=== PATIENT | female | born 1980 | race Caucasian/White ===

== ENCOUNTER → 2017-09-30 | Outpatient (CLI) | payer BC ==
[2017-09-30 09:53] LABS: Basophils % (A) 1 %; Eosinophils # (A) 0.1 k/uL (0-0.7); Eosinophils % (A) 1 %; HCT 40.9 % (34.0-46.0); HGB 13.5 gm/dL (11.4-16.0); Lymphocytes # (A) 1.5 k/uL (1.0-4.8); Lymphocytes % (A) 22 %; MCV 90.8 fL (80.0-100.0); Mean Platelet Volume 9.4; Monocytes # (A) 0.4 k/uL (0-1.0); Monocytes % (A) 6 %; Neutrophils # (A) 4.7 k/uL (1.3-7.7); Neutrophils % (A) 69 %; Platelet Count 132 k/uL (150-450); RBC 4.51 m/uL (3.80-5.40); RDW 13.4 % (11.5-15.5); WBC 6.9 k/uL (3.8-10.6)
[2017-09-30 10:18] LABS: ALT 85 U/L (9-52); AST 59 U/L (14-36); Albumin 4.6 g/dL (3.5-5.0); Alkaline Phosphatase 56 U/L (38-126); Anion Gap 11 mmol/L; Blood Urea Nitrogen 15 mg/dL (7-17); Calcium 9.8 mg/dL (8.4-10.2); Carbon Dioxide 25 mmol/L (22-30); Chloride 106 mmol/L (98-107); Cholesterol 148 mg/dL (<200); Glucose 88 mg/dL (74-99); HDL Cholesterol 42 mg/dL (40-60); LDL Cholesterol,Calculated 85 mg/dL (0-99); Sodium 142 mmol/L (137-145); Total Bilirubin 0.7 mg/dL (0.2-1.3); Total Protein 6.9 g/dL (6.3-8.2); Triglycerides 103 mg/dL (<150)
[2017-09-30 10:29] LABS: T4, Free (Free Thyroxine) 0.86 ng/dL (0.78-2.19)
== END | disposition home or self-care (01) ==
LOC: LABWHC1 08:40
PROVIDERS: ATTEND Internal Medicine
DX: Z13.228 Encounter for screening for other metabolic disorders (principal); Z13.29 Encounter for screening for other suspected endocrine disorder; Z13.220 Encounter for screening for lipoid disorders
CPT/HCPCS: 36415; 80053; 80061; 84439; 84443; 85025

== ENCOUNTER → 2019-01-25 | Outpatient (CLI) | payer BC ==
--- NOTE | 2019-01-26 10:40 | MM ---
Reason for exam: screening (asymptomatic). Baseline mammogram. History: Patient is nulliparous. Family history of breast cancer in maternal aunt. Taking hormonal contraceptives for 6 years. Physical Findings: Nurse did not find any significant physical abnormalities on exam. MG 3D Screening Mammo W/Cad Bilateral CC and MLO view(s) were taken. The breast tissue is heterogeneously dense. This may lower the sensitivity of mammography. 12 o'clock nodules seen bilaterally 5.2cm from nipple and 6.2cm from nipple on the left. These results were verbally communicated with the patient and result sheet given to the patient on 01/25/19. ASSESSMENT: Incomplete: need additional imaging evaluation, BI-RAD 0 RECOMMENDATION: Ultrasound of both breasts. If lesion persists on supplemental views, image directed ultrasound is recommended. [facility] will attempt to contact patient to return for supplemental views and ultrasound if indicated.
--- NOTE | 2019-01-26 10:43 | USB ---
Reason for exam: additional evaluation requested from abnormal screening. History: Patient is nulliparous. Family history of breast cancer in maternal aunt. Taking hormonal contraceptives for 6 years. US Breast Workup Limited OSMAN Right limited breast ultrasound including focal area of concern, retroareolar and axilla demonstrates a 3 x 2 x 4mm oval lesion too small to characterize at 11 o'clock and a 5 x 3 x 5mm oval, cystic lesion at 12 o'clock. Left limited breast ultrasound including focal area of concern, retroareolar and axilla demonstrates a 6 x 2 x 6mm oval, cystic lesion at 12 o'clock and a 3 x 3 x 3mm round cystic lesion at 12 o'clock. These results were verbally communicated with the patient and result sheet given to the patient on 01/25/19. ASSESSMENT: Benign, BI-RAD 2 RECOMMENDATION: Return to routine screening mammogram schedule for both breasts.
== END | disposition home or self-care (01) ==
LOC: RADMAMWWP 15:23
PROVIDERS: ATTEND Internal Medicine
DX: Z12.31 Encounter for screening mammogram for malignant neoplasm of breast (principal); R92.8 Other abnormal and inconclusive findings on diagnostic imaging of breast
CPT/HCPCS: 77063; 77067

== ENCOUNTER → 2019-12-05 | Outpatient (CLI) | payer BC ==
[2019-12-05 14:10] LABS: Appearance,Urine Clear (Clear); Bacteria,Urine Rare /hpf; Bilirubin,Urine Negative (Negative); Blood,Urine Small (Negative); Color,Urine Colorless; Glucose,Urine (UA) Negative (Negative); Ketones,Urine Negative (Negative); Leukocyte Esterase,Urine Negative (Negative); Mucus,Urine Rare /hpf; Nitrite,Urine Negative (Negative); PH, Urine 5.5 (5.0-8.0); Protein,Urine Negative (Negative); RBC,Urine <1 /hpf (0-5); Specific Gravity,Urine 1.002 (1.001-1.035); Squamous Epithelial Cell,Urine <1 /hpf (0-4); Urobilinogen,Urine <2.0 mg/dL (<2.0); WBC,Urine 1 /hpf (0-5)
[2019-12-05 14:50] LABS: HCT 37.7 % (34.0-46.0); HGB 12.1 gm/dL (11.4-16.0); MCH 29.7 pg (25.0-35.0); MCHC 32.2 g/dL (31.0-37.0); MCV 92.1 fL (80.0-100.0); Mean Platelet Volume 11.5; Platelet Count 134 k/uL (150-450); RBC 4.09 m/uL (3.80-5.40); RDW 13.3 % (11.5-15.5); WBC 6.7 k/uL (3.8-10.6)
[2019-12-05 15:00] LABS: INR 0.9 (<1.2); Partial Thromboplastin Time 22.8 sec (22.0-30.0); Prothrombin Time 9.9 sec (9.0-12.0)
[2019-12-05 15:09] LABS: ALT 12 U/L (4-34); AST 19 U/L (14-36); African American GFR (CKD) >90 (>60 ml/min/1.73 sqM); Albumin 4.4 g/dL (3.5-5.0); Alkaline Phosphatase 52 U/L (38-126); Anion Gap 8 mmol/L; Blood Urea Nitrogen 12 mg/dL (7-17); Calcium 9.3 mg/dL (8.4-10.2); Carbon Dioxide 25 mmol/L (22-30); Chloride 104 mmol/L (98-107); Glucose 78 mg/dL (74-99); Non-African American GFR(CKD) >90 (>60 ml/min/1.73 sqM); Potassium 4.1 mmol/L (3.5-5.1); Sodium 137 mmol/L (137-145); Total Bilirubin 0.6 mg/dL (0.2-1.3); Total Protein 6.9 g/dL (6.3-8.2)
== END | disposition home or self-care (01) ==
LOC: LABPAT 13:06
PROVIDERS: ATTEND Orthopaedic Surgery
DX: Z01.818 Encounter for other preprocedural examination (principal); Z01.812 Encounter for preprocedural laboratory examination
CPT/HCPCS: 36415; 80053; 81001; 85027; 85610; 85730; 86850; 86900; 86901; 87070

== ENCOUNTER 2019-12-12 05:30 | Day surgery (SDC) | payer BC ==
[2019-12-04 12:52] VITALS: BMI 30.7
[~2019-12-12 05:30] MED LIST: ACETAMINOPHEN TAB 500 MG TAB PO ONE; GABAPENTIN 300 MG CAP PO ONE; MELOXICAM 7.5 MG TAB PO ONE; TRANEXAMIC ACID 1,000 MG in SODIUM CHLORIDE 0.9% 100 ML IVPB ONE
[2019-12-12] MEDS ORDERED: MIDAZOLAM 2 MG/2 ML VIAL IV PRN (05:48)
[2019-12-12] MEDS ORDERED: HYDROmorphone 0.5 MG/0.5 ML SYRINGE IVP PRN ×3 (05:48→06:57)
[2019-12-12] MEDS ORDERED: ONDANSETRON 4 MG/2 ML VIAL IVP ONE (05:48)
[2019-12-12] MEDS ORDERED: LIDOCAINE 1% (10MG/ML) FOR IV START INTRADERMA PRN (05:48)
[2019-12-12] MEDS ORDERED: DEXAMETHASONE SOD PHOSPHATE 10 MG/ML 1 ML VIAL IV ONE (05:48)
[2019-12-12 06:07] VITALS: RESP 16
[2019-12-12] MEDS: LACTATED RINGERS 1,000 ML IV SCH (06:18)
[2019-12-12] MEDS ORDERED: ACETAMINOPHEN TAB 500 MG TAB ONE (06:22)
[2019-12-12] MEDS ORDERED: ONDANSETRON 4 MG/2 ML VIAL ONE (06:22)
[2019-12-12] MEDS ORDERED: ePHEDrine SULFATE/0.9% NACL/PF 50 MG/5 ML SYRINGE IV ONE (06:53)
[2019-12-12] MEDS ORDERED: fentaNYL (PF) 50 MCG/ML 2 ML AMP ONE (06:53)
[2019-12-12] MEDS ORDERED: PROPOFOL 10 MG/ML 20 ML VIAL IV ONE (06:53)
[2019-12-12] MEDS ORDERED: MIDAZOLAM 2 MG/2 ML VIAL ONE (06:53)
[2019-12-12] MEDS ORDERED: SODIUM CHLORIDE 0.9% IRRIG 1,000 ML BTL IRRIGATION ONE (06:53)
[2019-12-12] MEDS ORDERED: TRANEXAMIC ACID 1,000 MG/10 ML VIAL ONE (06:53)
[2019-12-12] MEDS ORDERED: HEPARIN SODIUM,PORCINE 10,000 UNIT/ML 1 ML VIAL ONE (06:53)
[2019-12-12] MEDS ORDERED: SODIUM CHLORIDE 0.9% 100 ML BAG ONE (06:53)
[2019-12-12] MEDS ORDERED: NALOXONE 0.4 MG/ML 1 ML VIAL IV PRN (06:57)
[2019-12-12] MEDS ORDERED: MAGNESIUM HYDROXIDE 2,400 MG/10 ML CUP PO PRN (06:57)
[2019-12-12] MEDS ORDERED: diazePAM 5 MG TAB PO PRN (06:57)
[2019-12-12] MEDS ORDERED: hydrOXYzine pamoate 25 MG CAP PO PRN (06:57)
[2019-12-12] MEDS ORDERED: ONDANSETRON 4 MG/2 ML VIAL IVP PRN (06:57)
[2019-12-12] MEDS ORDERED: HYDROmorphone 1 MG/ML 1 ML SYRINGE IVP PRN (06:57)
[2019-12-12] MEDS ORDERED: HYDROcodone/APAP 5-325MG 1 EACH TAB PO PRN ×2 (06:57)
[2019-12-12] MEDS ORDERED: ceFAZolin 3,000 MG in SODIUM CHLORIDE 0.9% IRRIGATIO 3,000 ML IRRIGATION ONE (06:58)
[2019-12-12] MEDS: ROPIVACAINE 246.25 MG, EPINEPHrine 0.5 MG, KETOROLAC 30 MG, cloNIDine HCL/PF 80 MCG, WA... MISCELLANE ONE ×10 (07:30→08:20)
[2019-12-12] MEDS ORDERED: LACTATED RINGERS 1,000 ML IV ONE (08:25)
--- NOTE | 2019-12-12 08:40 | P.OP ---
Date of Procedure: 12/12/19 Preoperative Diagnosis: Severe osteoarthritis right hip Postoperative Diagnosis: Severe osteoarthritis right hip Procedure(s) Performed: Right total hip arthroplasty with a direct anterior approach Implants: Peterson and nephew Polarstem size 0 standard Petreson & Nephew R3, 3 hole acetabular shell, 52 mm Peterson [employer] Nephew reflection 6.5 mm cancellus screw, 20 mm 2 Peterson [employer] Nephew R3, XLPE 20 acetabular liner Peterson & Nephew Oxinium femoral head 36 m, -3 All components were press-fit. The articulation is Oxinium on polyethylene. Anesthesia: spinal Surgeon: Micheal Galeano Academic Computing Director #1: Steph Cooper Estimated Blood Loss (ml): 300 (125 mL returned with Cell Saver) Pathology: other (Femoral head) Condition: stable Disposition: PACU Indications for Procedure: After failure of conservative treatment we discussed the surgical and nonsurgical treatment options at length. Patient wishes to proceed with a total hip arthroplasty with a direct anterior approach. Complications specific to this procedure were discussed at length, including but not limited to infection, leg length discrepancy, dislocation, and nerve injury. Covid-19 was also discussed at length with the patient, and they are aware of the current policies and procedures. The patient was given the option of delaying surgery, but they elect to proceed knowing these risks. Patient is aware of all these complications and informed consent was obtained Operative Findings: The operative findings are consistent with severe osteoarthritis the right hip Description of Procedure: Patient was seen and evaluated in the preoperative area, consent was reviewed, and the surgical site was marked with a skin marker. Patient was then brought to the operating room and given prophylactic antibiotics intravenously. 1 g of Tranexamic acid was also given. A spinal anesthetic was administered by the anesthesia department. The patient was then placed on the [place] table with the bony prominences well-padded. The hip area was then prepped and draped in usual sterile fashion. A universal timeout was then performed, which confirmed the patient's name, surgical site, ALLERGIES, and procedure being performed. Next the incision site was located at 1 cm distal and 1 cm lateral to the anterior superior iliac spine. The skin and subcutaneous tissues were sharply incised. Incision was carefully dissected down to the fascia overlying the tensor fascia anjel muscle. This fascia was then incised in line with the incision. Next, using blunt finger dissection, the tensor fascia anjel muscle was dissected off its investing fascia. The muscle was then carefully retracted laterally with a cobra retractor over the lateral neck of the femur. Next, the circumflex vessels were identified and cauterized using the AquaMantis device. The anterior hip capsule was then exposed. The capsule was then opened and an inverted T fashion. Cobra retractors were then placed intracapsularly. The proximal femur was then visualized. The femoral neck was then osteotomized appropriate level above the lesser trochanter. Small amount of traction was placed with the [place] table. A small wedge of bone was then removed from the remaining femoral head. Next, using a corkscrew femoral head was easily removed from the acetabulum. On gross visual inspection, the femoral head had complete loss of articular cartilage in multiple periarticular osteophytes. Attention was then turned to the acetabulum. the acetabulum was exposed and any remaining labrum was excised. Sequential reaming of the acetabulum was performed using fluoroscopic guidance. When the appropriate size was reached, a trial was then placed. The position and fit of the trial was checked with fluoroscopy. The trial was then removed. Then, using fluoroscopic guidance, the final implant was impacted at 20 of anteversion and 40 of abduction, and fully seated in the acetabulum. 2 screws were then placed in the acetabulum. Again fluoroscopy was used to check position of the screws. Next, the liner was then impacted, with a 20 elevated liner located in the anterior superior quadrant. Component locking was confirmed. Attention was then directed to the femur. With the aid of the [place] table, the femur was externally rotated to approximately 130, extended, and abducted under the opposite leg. A side hook was then placed under the proximal femur, and the side hook elevator was used to elevate the proximal femur. Retractors were then placed. A capsular release was performed, as well as a release of the conjoined tendon, which afforded excellent visualization of the proximal femur. Next, a box osteotome was used to lateralize the proximal femur. A merchandise flow team leader was then used to locate the femoral canal. Sequential broaching was then performed with appropriate size which afforded excellent fixation in the proximal femur. A trial was then placed with appropriate head and neck, and the hip was gently reduced with the aid of the [place] table. Fluoroscopy was then used to check position of the components, as well as to ensure equal leg lengths. The hip was then gently dislocated and the trials were then removed. Final implants were then impacted and the hip was again reduced. Final fluoroscopic x-rays confirmed that the components were in anatomic position, as well as equal leg lengths. The hip was also taken through range of motion, and found to be stable. The hip was then copiously irrigated with antibiotic solution with pulsatile lavage. The hip was then irrigated with Irrisept solution. The soft tissues were then injected with a ropivacaine solution, which consisted of 246.25 mg of ropivacaine, 0.5 mg of epinephrine, 30 mg of Toradol, 80 g of clonidine, and 48.45 mL of sterile water, for a total of 100 mL of fluid injected. A second dose of 1 g of Tranexamic acid was also given. the fascia was then closed with 2-0 strata fix suture. The subcutaneous tissue was closed with 3-0 Vicryl. The subcuticular tissue was closed with 3-0 strata fix suture. The skin was then closed with Dermabond glue and a sterile silver dressing. The patient was then transferred to the recovery room in stable condition. The cosmetic sales assistant CAMMIE Dos Santos was required due to the complexity of surgery, and the need for skilled registered nurse surgical services for positioning, draping, exposure, retraction, and closure of the wound.
--- NOTE | 2019-12-12 09:01 | XR ---
EXAMINATION TYPE: XR Hip Limited RT DATE OF EXAM: 12/12/2019 COMPARISON: NONE HISTORY: Postop TECHNIQUE: One view submitted. FINDINGS: There is postsurgical change in near anatomic alignment. There is soft tissue edema and emphysema. IMPRESSION: 1. Postoperative change. Appears in near-anatomic alignment.
--- NOTE | 2019-12-12 09:02 | FL ---
EXAMINATION TYPE: FL guidance operating room DATE OF EXAM: 12/12/2019 HISTORY: Fluoroscopy time 1 minute and 1 seconds of fluoroscopy provided. IMPRESSION: 1. Fluoroscopy time.
[2019-12-12] MEDS: SODIUM CHLORIDE 0.9% 1,000 ML IV SCH ×2 (10:09→20:37)
--- NOTE | 2019-12-12 20:08 | CONS ---
CONSULTATION DATE OF SERVICE: 12/12/2019 REASON FOR CONSULTATION: Advice regarding DJD and other multiple medical issues, requested by Orthopedic Surgery. HISTORY OF PRESENT ILLNESS: This 39-year-old woman with a past medical history of DJD, history of left Achilles tendon history of laparoscopy, being followed by Dr. Umanzor in the outpatient setting, underwent right total knee joint arthroplasty with a direct anterior approach by Dr. Galeano. There is no history of any fever, rigor or chills. No history of headache, loss of consciousness, seizures, chest pain or palpitations at this time. PAST MEDICAL HISTORY: History of DJD, history of endometriosis, left Achilles tendon repair. MEDICATIONS: Loestrin. ALLERGIES: NONE. FAMILY HISTORY: No history of heart disease or strokes in the family. SOCIAL HISTORY: Occasional alcohol intake. No history of smoking. REVIEW OF SYSTEMS: ENT: No diminished hearing. No diminished vision. CARDIOVASCULAR SYSTEM: No angina, palpitations. RESPIRATORY SYSTEM: No cough noted. GI: No nausea, vomiting. : No dysuria or retention. NERVOUS SYSTEM: No numbness, weakness. ALLERGY/IMMUNOLOGY: No asthma, hayfever. MUSCULOSKELETAL: As mentioned earlier. HEMATOLOGY/ONCOLOGY: No history of anemia. ENDOCRINE: No history of diabetes, hypothyroidism. CONSTITUTIONAL: As mentioned earlier. DERMATOLOGY: Negative. RHEUMATOLOGY: Negative. PSYCHIATRY: As mentioned earlier. PHYSICAL EXAMINATION: Patient is alert, oriented x3. Pulse is 60, blood pressure 103/65, respiration normal, temperature normal. HEENT: Conjunctivae normal. NECK: No jugular venous distention. CARDIOVASCULAR SYSTEM: S1, S2 muffled. RESPIRATORY SYSTEM: Breath sounds diminished at the bases. No rhonchi. No crackles. ABDOMEN: Soft, non-tender. LEGS: Status post surgery. NERVOUS SYSTEM: No focal deficit. LABS: Platelets 134. Chemistries otherwise normal. ASSESSMENT: 1. Status post right total knee joint arthroplasty with severe degenerative joint disease. 2. History of thrombocytopenia. 3. History of degenerative joint disease. 4. History of left Achilles tendon repair. 5. FULL CODE. RECOMMENDATIONS AND DISCUSSION: In this 39-year-old woman who presented with multiple medical issues, I recommend to continue current medications, DVT prophylaxis. Incentive spirometry. Recommend repeat CBC in the morning. The patient may be asked to follow up with Dr. Umanzor in the outpatient setting. Thank you, Dr. Galeano, for letting us participate in the care of this patient. [id number] / IJN: [id number] / DIMA
[2019-12-12] MEDS: ASPIRIN 325 MG TAB PO SCH (20:36)
[2019-12-12] MEDS ORDERED: SENNOSIDES-DOCUSATE SODIUM 1 EACH TAB PO SCH (21:00)
[2019-12-13] MEDS: LACTATED RINGERS 1,000 ML IV SCH (05:14)
[2019-12-13 07:32] LABS: Basophils % (A) 0 %; Eosinophils % (A) 0 %; HCT 29.6 % (34.0-46.0); Lymphocytes # (A) 1.5 k/uL (1.0-4.8); Lymphocytes % (A) 26 %; MCHC 32.6 g/dL (31.0-37.0); MCV 92.1 fL (80.0-100.0); Monocytes # (A) 0.4 k/uL (0-1.0); Monocytes % (A) 8 %; Neutrophils # (A) 3.8 k/uL (1.3-7.7); Neutrophils % (A) 65 %; Platelet Count 104 k/uL (150-450); RBC 3.21 m/uL (3.80-5.40); RDW 13.1 % (11.5-15.5); WBC 5.9 k/uL (3.8-10.6)
[2019-12-13 07:44] LABS: HGB 9.6 gm/dL (11.4-16.0)
[2019-12-13 08:11] VITALS: BP 104/64; PULSE 67; TEMP 98.7
[2019-12-13] MEDS: ASPIRIN 325 MG TAB PO SCH (08:30)
--- NOTE | 2019-12-13 08:41 | P.DS ---
Providers Expected date of discharge: 12/13/19 Attending physician: Micheal Galeano Consults: 12/12/19 06:57 Consult Physician Routine Consulting Provider: Carla Gil Consult Reason/Comments: medical management Do you want consulting provider notified?: Yes Primary care physician: Holly Umanzor - Discharge Diagnosis(es) (1) S/P total hip arthroplasty Current Visit: Yes Status: Acute (2) Osteoarthritis of right hip Current Visit: Yes Status: Acute Hospital Course: This is a 39-year-old female with known history of degenerative arthritis of the right hip. The patient presents for evaluation. After discussion and consideration patient elects to proceed with total hip arthroplasty. The patient is seen preoperatively by Dr. Galeano and medically cleared for surgery by their primary care physician. Patient is admitted to [facility] on 12/12/2019 for total hip arthroplasty. The procedures performed without complication or sequelae. The patient is doing well postoperatively. Labs and vital signs are stable on day of discharge. On day of discharge patient's hip incision is healing well. There is minimal erythema. There is no drainage noted at this time. There is minimal soft tissue swelling to the hip and thigh. Patient has full foot and ankle motion without difficulty or pain. Calf is soft and nontender to palpation. Neurovascular status to the right lower extremity is intact. Patient is dis charged home in good condition. Opioid start talking form is reviewed and signed at patient bedside. Please see med rec for accurate list of home medications. Plan - Discharge Summary Discharge Rx Participant: Yes New Discharge Prescriptions: New Aspirin 325 mg PO BID #60 tab HYDROcodone/APAP 5-325MG [[place] 5-325] 1 - 2 tab PO Q6HR PRN #48 tab PRN Reason: Pain Sennosides [Senokot] 2 tab PO DAILY PRN #60 tablet PRN Reason: Constipation No Action Norethindrone AC-Eth Estradiol [Loestrin 21 1-20 Tablet] 1 tab PO 1200 Discharge Medication List Norethindrone AC-Eth Estradiol [Loestrin 21 1-20 Tablet] 1 tab PO 1200 12/04/19 [History] Aspirin 325 mg PO BID #60 tab 12/13/19 [Rx] HYDROcodone/APAP 5-325MG [[place] 5-325] 1 - 2 tab PO Q6HR PRN #48 tab 12/13/19 [Rx] Sennosides [Senokot] 2 tab PO DAILY PRN #60 tablet 12/13/19 [Rx] Follow up Appointment(s)/Referral(s): [facility], [NON-STAFF] - Patient Instructions/Handouts: Joint Replacement Surgery (DC) Activity/Diet/Wound Care/Special Instructions: Weightbearing as tolerated with walker. Leave dressing intact. Dressing may be removed by home care nurse or by patient in 10 days. May shower with dressing on. Recommend use of compression stockings daily until follow up to help prevent swelling and blood clots. May remove at night before sleeping. Please follow[facility]up with [facility] in 2 weeks and call with any questions or concerns, . Discharge Disposition: HOME WITH HOME HEALTH SERVICES
[2019-12-13] MEDS ORDERED: MELOXICAM 7.5 MG TAB PO SCH (09:00)
[2019-12-13] MEDS: SODIUM CHLORIDE 0.9% 1,000 ML IV SCH (09:18)
== END 2019-12-13 11:05 | disposition home health service (06) ==
LOC: OR 05:30 → EDSTATUS 07:00 → 4SSUR 09:34 → OR 12-13 11:05
PROVIDERS: ATTEND Orthopaedic Surgery
DX: M16.11 Unilateral primary osteoarthritis, right hip (principal); D69.6 Thrombocytopenia, unspecified; Z79.3 Long term (current) use of hormonal contraceptives; Z79.899 Other long term (current) drug therapy; Z98.890 Other specified postprocedural states; Z87.891 Personal history of nicotine dependence; Z83.3 Family history of diabetes mellitus; Z82.49 Family history of ischemic heart disease and other diseases of the circulatory system
CPT/HCPCS: 97110; 97530; 97161; 97165; 86891; 81025; 85025; 88300; 73501 ×2; 27130; P9022; C1776; J2250; J0171; J1644; J1100; J0690 ×3; J2405; J3010; J1885; J2795; J2704; J0735; 86850; 86900; 86901

== ENCOUNTER 2019-12-17 09:45 | Emergency (ER) | payer BC ==
[2019-12-17 09:54] VITALS: RESP 18
[2019-12-17] MEDS ORDERED: methylPREDNISolone SOD SUCCI 125 MG/2 ML VIAL IV STA (10:13)
[2019-12-17] MEDS ORDERED: SODIUM CHLORIDE 0.9% 500 ML 500 ML IV STA (10:13)
[2019-12-17] MEDS ORDERED: diphenhydrAMINE 50 MG/ML 1 ML VIAL IVP STA (10:13)
[2019-12-17] MEDS ORDERED: FAMOTIDINE 20 MG/2 ML VIAL IV STA (10:13)
--- NOTE | 2019-12-17 10:44 | ED ---
Allergic Reaction HPI - General Chief complaint: Allergic Reaction Stated complaint: poss allergic rxn Time Seen by Provider: 12/17/19 10:05 Source: patient Mode of arrival: ambulatory Limitations: no limitations - History of Present Illness Initial Comments: patient is a 39-year-old female presenting to the emergency Department with complaints of a possible ALLERGIC reaction. Patient had a recent right total hip performed 5 days ago. She's been recovering well since surgery. Patient was prescribed aspirin, [place], stool softener to take. Patient states she has been taking this medication as prescribed and then 2 days ago noticed a red rash starting on her arms and neck. Patient states she last took her pain medicine and stool softener more than 3 days ago. She states she took last took aspirin yesterday in the morning. She did call her orthopedic doctor who recommended she discontinue aspirin and to start taking Benadryl every 4 hours. Patient states she has been taking 50 mg of Benadryl every 4 hours starting from yesterday and she feels like the rash is not improving. She denies any chest pain, shortness of breath, throat discomfort, nausea or vomiting. She denies any fever or chills. Last dose of Benadryl was exam this morning. She has no further complaints at this time. Upon arrival to the ER, her vital signs are stable. - Related Data Home Medications Medication Instructions Recorded Confirmed Norethindrone AC-Eth Estradiol 1 tab PO 1200 12/04/19 12/12/19 [Loestrin 21 1-20 Tablet] Previous Rx's Medication Instructions Recorded Aspirin 325 mg PO BID #60 tab 12/13/19 HYDROcodone/APAP 5-325MG [[place] 1 - 2 tab PO Q6HR PRN #48 tab 12/13/19 5-325] Sennosides [Senokot] 2 tab PO DAILY PRN #60 tablet 12/13/19 Rivaroxaban [Xarelto] 10 mg PO DAILY #40 tab 12/16/19 predniSONE [Deltasone] 40 mg PO DAILY 4 Days #8 tab 12/17/19 Allergies Allergy/AdvReac Type Severity Reaction Status Date / Time No Known Allergies Allergy Verified 12/17/19 09:53 Review of Systems ROS Statement: Those systems with pertinent positive or pertinent negative responses have been documented in the HPI. ROS Other: All systems not noted in ROS Statement are negative. Past Medical History Past Medical History: Osteoarthritis (OA) Additional Past Medical History / Comment(s): total right hip replacement History of Any Multi-Drug Resistant Organisms: None Reported Past Surgical History: Orthopedic Surgery Additional Past Surgical History / Comment(s): left achilles tendon repair, laparoscopy for endometriosis Past Anesthesia/Blood Transfusion Reactions: No Reported Reaction Past Psychological History: No Psychological Hx Reported Smoking Status: Former smoker Past Alcohol Use History: Occasional Past Drug Use History: None Reported - Past Family History Mother Family Medical History: No Reported History General Exam - General Exam Comments Initial Comments: GENERAL: Patient is well-developed and well-nourished. Patient is nontoxic and in no acute distress. HEAD: Atraumatic, normocephalic. EYES: Pupils equal round and reactive to light, extraocular movements intact, sclera anicteric, conjunctiva are normal. Eyelids were unremarkable. ENT: TMs normal, nares patent, oropharynx clear without exudates. Moist mucous membranes. NECK: Normal range of motion, supple without lymphadenopathy or JVD. LUNGS: Unlabored respirations. Breath sounds clear to auscultation bilaterally and equal. No wheezes rales or rhonchi. HEART: Regular rate and rhythm without murmurs, rubs or gallops. ABDOMEN: Soft, nontender, normoactive bowel sounds. No guarding, no rebound. No masses appreciated. : Deferred MUSCULOSKELETAL: Normal extremities with adequate strength and normal range of motion, no pitting or edema. No clubbing or cyanosis. NEUROLOGICAL: Patient is alert and oriented x 3. Motor and sensory are also intact. Cranial nerves II through XII grossly intact. Symmetrical smile. Normal speech, normal gait. PSYCH: Normal mood, normal affect. SKIN: Warm, Dry, normal turgor. patient has a generalized hive rash over the majority of her body including her face, trunk, extremities, consistent with a possible ALLERGIC reaction. Limitations: no limitations Course Vital Signs 12/17/19 09:47 Temperature 98.6 F Pulse Rate 105 H Respiratory 18 Rate Blood Pressure 109/78 O2 Sat by Pulse 99 Oximetry Medical Decision Making - Medical Decision Making patient is a 39-year-old female here for possible ALLERGIC reaction to aspirin. He was prescribed aspirin, [place], stool softener after a recent right total hip replacement 5 days ago. The rash developed 2 days ago, she's been taking 50 mg of Benadryl since yesterday morning. She has never had difficulty breathing, chest pain or shortness of breath. Her vital signs are stable today. She does have hives on the majority of her body including head, neck, trunk, extremities. The rest of exam is unremarkable. Patient was given Benadryl, Pepcid, a dose of steroids. patient responded well to the medications, her hives are decreasing, no longer itchy or erythematous. I will give patient a prescription for prednisone 40 mg to use daily starting tomorrow for 4 days if needed. I did recommend continue with Benadryl if the hives increase or itching comes back. She will follow-up with her PCP this week. Patient is stable for discharge. Return parameters were discussed with the patient she verbalized understanding. Discussed with Dr. Jaramillo. Disposition Clinical Impression: Allergic reaction to drug, Hives Disposition: HOME SELF-CARE Condition: Stable Instructions (If sedation given, give patient instructions): Urticaria (ED) Additional Instructions: Please return to the Emergency Department if symptoms worsen or any other concerns. May continue with 50 mg of Benadryl every 4-6 hours for breakthrough itching or hives. May also take steroids as prescribed for 3-4 days for continued symptoms. Follow up with orthopedic doctor or PCP. Prescriptions: predniSONE [Deltasone] 40 mg PO DAILY 4 Days #8 tab Is patient prescribed a controlled substance at d/c from ED?: No Referrals: Holly Umanzor MD [Primary Care Provider] - 1-2 days
[2019-12-17 11:48] VITALS: BP 111/55; PULSE 83; TEMP 98.7
== END 2019-12-17 11:48 | disposition home or self-care (01) ==
LOC: EC 09:45
DX: L50.0 Allergic urticaria (principal); T39.015A Adverse effect of aspirin, initial encounter; Z96.641 Presence of right artificial hip joint; Z87.891 Personal history of nicotine dependence
CPT/HCPCS: 96361; 96374; 96375; 99282

== ENCOUNTER 2019-12-18 23:57 | Observation (INO) | payer BC ==
[2019-12-19 01:08] LABS: Basophils % (A) 0 %; Eosinophils # (A) 0.1 k/uL (0-0.7); Eosinophils % (A) 1 %; HCT 36.7 % (34.0-46.0); HGB 11.9 gm/dL (11.4-16.0); Lymphocytes # (A) 1.8 k/uL (1.0-4.8); Lymphocytes % (A) 16 %; MCH 29.1 pg (25.0-35.0); MCHC 32.5 g/dL (31.0-37.0); MCV 89.5 fL (80.0-100.0); Mean Platelet Volume 9.3; Monocytes # (A) 0.5 k/uL (0-1.0); Monocytes % (A) 4 %; Neutrophils # (A) 8.5 k/uL (1.3-7.7); Neutrophils % (A) 77 %; RDW 13.2 % (11.5-15.5)
[2019-12-19 01:18] LABS: ALT 57 U/L (4-34); AST 47 U/L (14-36); African American GFR (CKD) >90 (>60 ml/min/1.73 sqM); Albumin 3.8 g/dL (3.5-5.0); Alkaline Phosphatase 54 U/L (38-126); Anion Gap 8 mmol/L; Blood Urea Nitrogen 13 mg/dL (7-17); Calcium 9.2 mg/dL (8.4-10.2); Carbon Dioxide 24 mmol/L (22-30); Chloride 103 mmol/L (98-107); Glucose 101 mg/dL (74-99); Non-African American GFR(CKD) >90 (>60 ml/min/1.73 sqM); Potassium 3.8 mmol/L (3.5-5.1); Sodium 135 mmol/L (137-145); Total Bilirubin 0.8 mg/dL (0.2-1.3); Total Protein 6.4 g/dL (6.3-8.2)
[2019-12-19] MEDS ORDERED: methylPREDNISolone SOD SUCCI 125 MG/2 ML VIAL IV STA (01:21)
[2019-12-19 01:34] LABS: INR 0.9 (<1.2); Prothrombin Time 9.9 sec (9.0-12.0)
[2019-12-19 01:35] LABS: Platelet Count 286 k/uL (150-450)
[2019-12-19 01:39] LABS: Partial Thromboplastin Time 21.1 sec (22.0-30.0)
[2019-12-19] MEDS ORDERED: NALOXONE 0.4 MG/ML 1 ML VIAL IV PRN ×2 (02:01→08:56)
[2019-12-19] MEDS ORDERED: ONDANSETRON 4 MG/2 ML VIAL IVP PRN ×2 (02:38→08:57)
[2019-12-19] MEDS ORDERED: diphenhydrAMINE 25 MG CAP PO PRN (02:38)
--- NOTE | 2019-12-19 02:39 | ED ---
Allergic Reaction HPI - General Chief complaint: Allergic Reaction Stated complaint: ALLERGIC REACTION Time Seen by Provider: 12/19/19 00:03 Source: patient Mode of arrival: ambulatory Limitations: no limitations - History of Present Illness Initial Comments: Radha is a pleasant 39-year-old female previously healthy who underwent right hip arthroplasty on December 11. Patient did well postoperatively and was discharged home on full dose aspirin 2 times daily for DVT prophylaxis as well as by mouth Florence for pain management. Patient reports she took one Florence on Wednesday but her pain was otherwise minimal and she hasn't taken any since then. She took aspirin twice daily as prescribed until Wednesday. She presented to the emergency department on Wednesday with hives and there is concern for ALLERGIC reaction. She taken Benadryl with minimal improvement she was given IV steroids and Pepcid she had significant improvement with that and was discharged home with steroids. She has not taken any aspirin since Wednesday. Despite being compliant with her oral steroids and taking 50 mg of Benadryl every 4 hours throughout the day she has persistently worsening hives. Hives cover her entire body from her neck to her feet. She has no lesions in her mouth or vagina. She's not noticed any blistering or skin sloughing. She denies associated chest pain, shortness breath, tightness in her chest, nausea, vomiting or diarrhea. - Related Data Home Medications Medication Instructions Recorded Confirmed Norethindrone AC-Eth Estradiol 1 tab PO 1200 12/04/19 12/12/19 [Loestrin 21 1-20 Tablet] Previous Rx's Medication Instructions Recorded Aspirin 325 mg PO BID #60 tab 12/13/19 HYDROcodone/APAP 5-325MG [Florence 1 - 2 tab PO Q6HR PRN #48 tab 12/13/19 5-325] Sennosides [Senokot] 2 tab PO DAILY PRN #60 tablet 12/13/19 Rivaroxaban [Xarelto] 10 mg PO DAILY #40 tab 12/16/19 predniSONE [Deltasone] 40 mg PO DAILY 4 Days #8 tab 12/17/19 Allergies Allergy/AdvReac Type Severity Reaction Status Date / Time No Known Allergies Allergy Verified 12/19/19 00:10 Review of Systems ROS Statement: Those systems with pertinent positive or pertinent negative responses have been documented in the HPI. ROS Other: All systems not noted in ROS Statement are negative. Past Medical History Past Medical History: Osteoarthritis (OA) Additional Past Medical History / Comment(s): total right hip replacement History of Any Multi-Drug Resistant Organisms: None Reported Past Surgical History: Orthopedic Surgery Additional Past Surgical History / Comment(s): left achilles tendon repair, laparoscopy for endometriosis Past Anesthesia/Blood Transfusion Reactions: No Reported Reaction Past Psychological History: No Psychological Hx Reported Smoking Status: Former smoker Past Alcohol Use History: Occasional Past Drug Use History: None Reported - Past Family History Mother Family Medical History: No Reported History General Exam - General Exam Comments Initial Comments: Physical Exam GENERAL: Patient is well-developed and well-nourished. Patient is nontoxic and well-hydrated and is in no distress. HENT: Normocephalic, Atraumatic. EYES: PERRL, EOMI PULMONARY: Unlabored respirations. No audible rales rhonchi or wheezing was noted. CARDIOVASCULAR: There is a regular rate and rhythm without any murmurs gallops or rubs. ABDOMEN: Soft and nontender with normal bowel sounds. SKIN: Hives are noted from the neck to the feet No lesions are noted in the mouth on the vagina Nikolsky's sign negative : Deferred NEUROLOGIC: Patient is alert and oriented x3. Moving all extremities spontaneously MUSCULOSKELETAL: Normal extremities with adequate strength and full range of motion. No lower extremity swelling or edema. No calf tenderness. PSYCHIATRIC: Normal psychiatric evaluation. Limitations: no limitations Course Vital Signs 12/19/19 12/19/19 12/19/19 00:08 01:11 01:37 Temperature 99.5 F Pulse Rate 144 H 70 67 Respiratory 20 18 Rate Blood Pressure 91/55 100/44 O2 Sat by Pulse 96 98 Oximetry 12/19/19 02:47 Temperature Pulse Rate 70 Respiratory 18 Rate Blood Pressure 108/48 O2 Sat by Pulse 98 Oximetry Medical Decision Making - Medical Decision Making The patient was seen and evaluated, history is obtained from the patient, at bedside and review of medical record 39-year-old female who underwent surgery last week which was uncomplicated she received Florence and aspirin in the postoperative period, she presents to the ER Wednesday with an ALLERGIC reaction which improved with steroids and was discharged home on oral steroids and Benadryl despite compliance with this she has worsening of her reaction with hives over her entire body There is no mucous membrane involvement, no Nikolsky sign is negative, no evidence of SJS or TENS Labs were obtained and reveal mild transaminitis this is likely reactive to anti-inflammatory state or possibly reactive to the steroids the patient's been taking Given the worsening of her condition despite compliance with oral medications the patient will be admitted for IV steroids, IV Benadryl, Pepcid and Zofran as needed The patient is agreeable with this plan - Lab Data Result diagrams: 12/19/19 00:49 12/19/19 00:49 Lab Results 12/19/19 12/19/19 12/19/19 Range/Units 00:49 00:49 00:49 WBC 11.0 H (3.8-10.6) k/uL RBC 4.10 (3.80-5.40) m/uL Hgb 11.9 (11.4-16.0) gm/dL Hct 36.7 (34.0-46.0) % MCV 89.5 (80.0-100.0) fL MCH 29.1 (25.0-35.0) pg MCHC 32.5 (31.0-37.0) g/dL RDW 13.2 (11.5-15.5) % Plt Count 286 D (150-450) k/uL Neutrophils % 77 % Lymphocytes % 16 % Monocytes % 4 % Eosinophils % 1 % Basophils % 0 % Neutrophils # 8.5 H (1.3-7.7) k/uL Lymphocytes # 1.8 (1.0-4.8) k/uL Monocytes # 0.5 (0-1.0) k/uL Eosinophils # 0.1 (0-0.7) k/uL Basophils # 0.0 (0-0.2) k/uL PT 9.9 (9.0-12.0) sec INR 0.9 (<1.2) APTT 21.1 L (22.0-30.0) sec Sodium 135 L (137-145) mmol/L Potassium 3.8 (3.5-5.1) mmol/L Chloride 103 (98-107) mmol/L Carbon Dioxide 24 (22-30) mmol/L Anion Gap 8 mmol/L BUN 13 (7-17) mg/dL Creatinine 0.53 (0.52-1.04) mg/dL Est GFR (CKD-EPI)AfAm >90 (>60 ml/min/1.73 sqM) Est GFR (CKD-EPI)NonAf >90 (>60 ml/min/1.73 sqM) Glucose 101 H (74-99) mg/dL Calcium 9.2 (8.4-10.2) mg/dL Total Bilirubin 0.8 (0.2-1.3) mg/dL AST 47 H (14-36) U/L ALT 57 H (4-34) U/L Alkaline Phosphatase 54 (38-126) U/L Total Protein 6.4 (6.3-8.2) g/dL Albumin 3.8 (3.5-5.0) g/dL Disposition Clinical Impression: Allergic reaction Disposition: ADMITTED IP TO THIS [facility] Condition: Stable Is patient prescribed a controlled substance at d/c from ED?: No
[2019-12-19] MEDS: methylPREDNISolone SOD SUCCI 125 MG/2 ML VIAL IV SCH ×2 (06:20→11:59)
[2019-12-19] MEDS ORDERED: FAMOTIDINE 20 MG TAB PO SCH (09:00)
[2019-12-19] MEDS ORDERED: RIVAROXABAN 10 MG TAB PO SCH (09:00)
[2019-12-19 09:29] VITALS: BP 92/57; PULSE 64; RESP 14; TEMP 98.6
--- NOTE | 2019-12-19 13:31 | P.CNOR ---
History of Present Illness - HPI Consult date: 12/19/19 History of present illness: This is a 39 year-old female who is status post right total hip arthroplasty on 12/12/2019. Patient is admitted due to allergic reaction. Patient states that she developed hives after taking aspirin. Patient states that she was treated in the emergency room with steroids and benadryl and her rash improved. However, the hives returned today. Patient denies any pain in the right hip. Patient was sent in a prescription for Xarelto to take instead of aspirin for DVT prophylaxis. Patient states that her last dose of Xarelto was on Wednesday. Patient denies any fever/chills, numbness, weakness or tingling. Review of Systems See HPI. Past Medical History Past Medical History: Osteoarthritis (OA) Additional Past Medical History / Comment(s): total right hip replacement History of Any Multi-Drug Resistant Organisms: None Reported Past Surgical History: Orthopedic Surgery Additional Past Surgical History / Comment(s): left achilles tendon repair, laparoscopy for endometriosis Past Anesthesia/Blood Transfusion Reactions: No Reported Reaction Past Psychological History: No Psychological Hx Reported Smoking Status: Former smoker Past Alcohol Use History: Occasional Past Drug Use History: None Reported - Past Family History Mother Family Medical History: No Reported History Additional Family Medical History / Comment(s): hypotension, Father Family Medical History: Diabetes Mellitus, Hyperlipidemia Medications and Allergies Home Medications Medication Instructions Recorded Confirmed Type Norethindrone AC-Eth Estradiol 1 tab PO DAILY@1200 12/04/19 12/19/19 History [Loestrin 21 1-20 Tablet] Rivaroxaban [Xarelto] 10 mg PO DAILY #40 tab 12/16/19 12/19/19 Rx Cetirizine HCl 10 mg PO DAILY #10 tablet 12/19/19 Rx Famotidine [Pepcid] 20 mg PO BID #30 tablet 12/19/19 Rx predniSONE 10 mg PO DAILY #30 tab 12/19/19 Rx Allergies Allergy/AdvReac Type Severity Reaction Status Date / Time aspirin Allergy Rash/Hives Verified 12/19/19 07:41 Physical Examination On exam patient is resting comfortably in bed in no acute distress. There is no pain with hip motion. Sensation intact. Hives noted. Neurovascular status and circulatory status are intact. Results - Labs Labs: Abnormal Lab Results - Last 24 Hours (Table) 12/19/19 12/19/19 12/19/19 Range/Units 00:49 00:49 00:49 WBC 11.0 H (3.8-10.6) k/uL Neutrophils # 8.5 H (1.3-7.7) k/uL APTT 21.1 L (22.0-30.0) sec Sodium 135 L (137-145) mmol/L Glucose 101 H (74-99) mg/dL AST 47 H (14-36) U/L ALT 57 H (4-34) U/L H & H 12/19/19 Range/Units 00:49 Hgb 11.9 (11.4-16.0) gm/dL Hct 36.7 (34.0-46.0) % Coagulation 12/19/19 Range/Units 00:49 INR 0.9 (<1.2) Result Diagrams: 12/19/19 00:49 12/19/19 00:49 Assessment and Plan (1) Allergic reaction Status: Acute Code(s): T78.40XA - ALLERGY, UNSPECIFIED, INITIAL ENCOUNTER SNOMED Code(s): 980106335 (2) Hives Status: Acute Code(s): L50.9 - URTICARIA, UNSPECIFIED SNOMED Code(s): 730712673 (3) S/P total hip arthroplasty Status: Acute Code(s): Z96.649 - PRESENCE OF UNSPECIFIED ARTIFICIAL HIP JOINT SNOMED Code(s): 413879034787 Plan: 1. Anticoagulation to be determined by internal medcine. 2. No surgical intervention planned. Patient may follow up as an outpatient with [facility].
--- NOTE | 2019-12-19 13:38 | P.HPIM ---
History of Present Illness Radha is a pleasant 39-year-old female previously healthy who underwent right hip arthroplasty on December 11. Patient did well postoperatively and was discharged home on full dose aspirin 2 times daily for DVT prophylaxis as well as by mouth Mobile for pain management. Patient reports she took one Mobile on Wednesday but her pain was otherwise minimal and she hasn't taken any since then. She took aspirin twice daily as prescribed until Wednesday. She presented to the emergency department on Wednesday with hives and there is concern for ALLERGIC reaction. She taken Benadryl with minimal improvement she was given IV steroids and Pepcid she had significant improvement with that and was discharged home with steroids. She has not taken any aspirin since Wednesday. Despite being compliant with her oral steroids and taking 50 mg of Benadryl every 4 hours throughout the day she has persistently worsening hives. Hives cover her entire body from her neck to her feet. She has no lesions in her mouth or vagina. She's not noticed any blistering or skin sloughing. She denies associated chest pain, shortness breath, tightness in her chest, nausea, vomiting or diarrhea. Patient has diffuse maculopapular rash with significant improvement competitors today. Patient last aspirin was on Wednesday. Patient is clinically stable at this time will be discharged on weaning doses of steroids and cetirizine for will ALLERGIC rash along with application oflacto calamine lotion. Review of Systems REVIEW OF SYSTEMS: CONSTITUTIONAL: No fever, no malaise, no fatigue. HEENT: No recent visual problems or hearing problems. Denied any sore throat. CARDIOVASCULAR: No chest pain, orthopnea, PND, no palpitations, no syncope. PULMONARY: No shortness of breath, no cough, no hemoptysis. GASTROINTESTINAL: No diarrhea, no nausea, no vomiting, no abdominal pain. NEUROLOGICAL: No headaches, no weakness, no numbness. HEMATOLOGICAL: Denies any bleeding or petechiae. GENITOURINARY: Denies any burning micturition, frequency, or urgency. MUSCULOSKELETAL/RHEUMATOLOGICAL: Denies any joint pain, swelling, or any muscle pain. ENDOCRINE: Denies any polyuria or polydipsia. The rest of the 14-point review of systems is negative. Past Medical History Past Medical History: Osteoarthritis (OA) Additional Past Medical History / Comment(s): total right hip replacement History of Any Multi-Drug Resistant Organisms: None Reported Past Surgical History: Orthopedic Surgery Additional Past Surgical History / Comment(s): left achilles tendon repair, laparoscopy for endometriosis Past Anesthesia/Blood Transfusion Reactions: No Reported Reaction Past Psychological History: No Psychological Hx Reported Smoking Status: Former smoker Past Alcohol Use History: Occasional Past Drug Use History: None Reported - Past Family History Mother Family Medical History: No Reported History Additional Family Medical History / Comment(s): hypotension, Father Family Medical History: Diabetes Mellitus, Hyperlipidemia Medications and Allergies Home Medications Medication Instructions Recorded Confirmed Type Norethindrone AC-Eth Estradiol 1 tab PO DAILY@1200 12/04/19 12/19/19 History [Loestrin 21 1-20 Tablet] Rivaroxaban [Xarelto] 10 mg PO DAILY #40 tab 12/16/19 12/19/19 Rx Cetirizine HCl 10 mg PO DAILY #10 tablet 12/19/19 Rx Famotidine [Pepcid] 20 mg PO BID #30 tablet 12/19/19 Rx predniSONE 10 mg PO DAILY #30 tab 12/19/19 Rx Allergies Allergy/AdvReac Type Severity Reaction Status Date / Time aspirin Allergy Rash/Hives Verified 12/19/19 07:41 Physical Exam Vitals: Vital Signs Temp Pulse Pulse Resp BP BP Pulse Ox 12/19/19 09:00 98.6 F 64 14 92/57 95 12/19/19 02:53 97.7 F 81 17 104/67 100 12/19/19 02:47 70 18 108/48 98 12/19/19 01:37 67 18 100/44 98 12/19/19 01:11 70 12/19/19 00:08 99.5 F 144 H 20 91/55 96 Intake and Output 12/18/19 12/19/19 12/19/19 22:59 06:59 14:59 Other: # Voids 1 1 Weight 83.915 kg PHYSICAL EXAMINATION: GENERAL: The patient is alert and oriented x3, not in any acute distress. Well developed, well nourished. HEENT: Pupils are round and equally reacting to light. EOMI. No scleral icterus. No conjunctival pallor. Normocephalic, atraumatic. No pharyngeal erythema. No thyromegaly. CARDIOVASCULAR: S1 and S2 present. No murmurs, rubs, or gallops. PULMONARY: Chest is clear to auscultation, no wheezing or crackles. ABDOMEN: Soft, nontender, nondistended, normoactive bowel sounds. No palpable organomegaly. MUSCULOSKELETAL: No joint swelling or deformity. EXTREMITIES: No cyanosis, clubbing, or pedal edema. NEUROLOGICAL: Gross neurological examination did not reveal any focal deficits. SKIN: Diffuse maculo papular rash consistent with ALLERGIC reaction, significantly improved compared to his today as per the patient Results CBC & Chem 7: 12/19/19 00:49 12/19/19 00:49 Labs: Abnormal Lab Results - Last 24 Hours (Table) 12/19/19 12/19/19 12/19/19 Range/Units 00:49 00:49 00:49 WBC 11.0 H (3.8-10.6) k/uL Neutrophils # 8.5 H (1.3-7.7) k/uL APTT 21.1 L (22.0-30.0) sec Sodium 135 L (137-145) mmol/L Glucose 101 H (74-99) mg/dL AST 47 H (14-36) U/L ALT 57 H (4-34) U/L Thrombosis Risk Factor Assmnt - Choose All That Apply Any of the Below Risk Factors Present?: Yes Each Factor Represents 1 point: Age 41-60 years, Obesity (BMI >25) Other Risk Factors: No Other congenital or acquired thrombophilia - If yes, enter type in comment: No Thrombosis Risk Factor Assessment Total Risk Factor Score: 2 Thrombosis Risk Factor Assessment Level: Low Risk Assessment and Plan Plan: -Possible ALLERGIC reaction to aspirin: Patient has improved symptoms will be discharged on weaning dose of steroids, antihistamines and the patient will be discharged today patient will be prescribed Pepcid as well. -Recent hip surgery patient DVT prophylaxis was switched from aspirin to Xare lto.
--- NOTE | 2019-12-19 13:39 | P.DS ---
Providers Date of admission: 12/19/19 02:01 Attending physician: Carla Gil Consults: 12/19/19 02:02 Consult Physician Routine Consulting Provider: Micheal Galeano Consult Reason/Comments: established patient s/p hip, allergic reaction to ASA Do you want consulting provider notified?: Yes, Notify in am Primary care physician: Holly Umanzor [facility] Course: Please refer to my HPI for further details Patient Condition at Discharge: Stable Plan - Discharge Summary Discharge Rx Participant: Yes New Discharge Prescriptions: New predniSONE 10 mg PO DAILY #30 tab Cetirizine HCl 10 mg PO DAILY #10 tablet Famotidine [Pepcid] 20 mg PO BID #30 tablet Discontinued predniSONE [Deltasone] 40 mg PO DAILY 4 Days #8 tab No Action Norethindrone AC-Eth Estradiol [Loestrin 21 1-20 Tablet] 1 tab PO DAILY@1200 Rivaroxaban [Xarelto] 10 mg PO DAILY #40 tab Discharge Medication List Norethindrone AC-Eth Estradiol [Loestrin 21 1-20 Tablet] 1 tab PO DAILY@1200 12/04/19 [History] Rivaroxaban [Xarelto] 10 mg PO DAILY #40 tab 12/16/19 [Rx] Cetirizine HCl 10 mg PO DAILY #10 tablet 12/19/19 [Rx] Famotidine [Pepcid] 20 mg PO BID #30 tablet 12/19/19 [Rx] predniSONE 10 mg PO DAILY #30 tab 12/19/19 [Rx] Follow up Appointment(s)/Referral(s): Holly Umanzor MD [Primary Care Provider] - 1 Week Micheal Galeano DO [Doctor of Osteopathic Medicine] - 1 Week Activity/Diet/Wound Care/Special Instructions: Follow previous instructions per orthopedics, follow up with them as previously advised. Unable to make follow up with Dr. Umanzor, office closed for lunch. Take medications as advised by primary hospital physician. Discharge Disposition: HOME SELF-CARE
== END 2019-12-19 12:34 | disposition home or self-care (01) ==
LOC: EC 23:57 → 1SOBS 12-19 02:01
PROVIDERS: ADMIT Hospitalist; ATTEND Hospitalist
DX: L50.0 Allergic urticaria (principal); T39.015A Adverse effect of aspirin, initial encounter; M19.90 Unspecified osteoarthritis, unspecified site; N80.9 Endometriosis, unspecified; R74.0 Nonspecific elevation of levels of transaminase and lactic acid dehydrogenase [LDH]; E66.9 Obesity, unspecified; Z68.30 Body mass index [BMI] 30.0-30.9, adult; Z96.641 Presence of right artificial hip joint; Z79.3 Long term (current) use of hormonal contraceptives; Z79.899 Other long term (current) drug therapy; Z98.890 Other specified postprocedural states; Z87.39 Personal history of other diseases of the musculoskeletal system and connective tissue; Z87.891 Personal history of nicotine dependence; Z82.49 Family history of ischemic heart disease and other diseases of the circulatory system; Z83.3 Family history of diabetes mellitus; Z83.438 Family history of other disorder of lipoprotein metabolism and other lipidemia; Y92.9 Unspecified place or not applicable
CPT/HCPCS: 96375; 96376; 96374; 99284; 36415; 80053; 85025; 85610; 85730; G0378; J2930; J2405

== ENCOUNTER → 2020-08-12 | Outpatient (CLI) | payer BC ==
--- NOTE | 2020-08-13 08:58 | MM ---
Reason for exam: screening (asymptomatic). Last mammogram was performed 1 year and 7 months ago. History: Patient is nulliparous. Family history of breast cancer in maternal aunt. Took hormonal contraceptives for 6 years. Physical Findings: A clinical breast exam by your physician is recommended on an annual basis and results should be correlated with mammographic findings. MG Screening Mammo w CAD Bilateral CC and MLO view(s) were taken. Prior study comparison: January 25, 2019, bilateral MG 3d screening mammo w/cad. The breast tissue is heterogeneously dense. This may lower the sensitivity of mammography. There is chronic nodularity in the left breast. There is no discrete abnormality. ASSESSMENT: Benign, BI-RAD 2 RECOMMENDATION: Routine screening mammogram of both breasts in 1 year.
== END | disposition home or self-care (01) ==
LOC: RADMAMWWP 12:46
PROVIDERS: ATTEND Internal Medicine
DX: Z12.31 Encounter for screening mammogram for malignant neoplasm of breast (principal); Z80.3 Family history of malignant neoplasm of breast
CPT/HCPCS: 77067

== ENCOUNTER → 2021-05-12 | Outpatient (CLI) | payer BC ==
[2021-05-12 11:18] LABS: ALT 30 U/L (8-44); AST 47 U/L (13-35); African American GFR (CKD) 81.5 (60.0-200.0); Albumin 4.8 g/dL (3.8-4.9); Albumin/Globulin Ratio 2.19 (1.60-3.17); Alkaline Phosphatase 57 U/L (41-126); BUN/Creat Ratio 10.09 Ratio (12.00-20.00); Calcium 9.9 mg/dL (8.7-10.3); Carbon Dioxide 23.9 mmol/L (20.0-27.5); Chloride 102 mmol/L (96-109); Chol/HDL Ratio 3.35 Ratio; Globulin 2.2 g/dL (1.6-3.3); Glucose 97 mg/dL (70-110); LDL Cholesterol,Calculated 101.6 mg/dL (0.0-131.0); Non-African American GFR(CKD) 70.3 (60.0-200.0); Potassium 4.5 mmol/L (3.5-5.5); Sodium 138 mmol/L (135-145)
[2021-05-12 11:37] LABS: Basophils # (A) 0.03 X 10*3/uL (0.00-0.10); Basophils % (A) 0.8 %; Eosinophils # (A) 0.11 X 10*3/uL (0.04-0.35); HCT 43.6 % (37.2-46.3); HGB 14.6 g/dL (12.0-15.0); Lymphocytes # (A) 1.58 X 10*3/uL (0.90-5.00); Lymphocytes % (A) 42.6 %; MCH 31.1 pg (27.0-32.0); MCHC 33.5 g/dL (32.0-37.0); MCV 92.8 fL (80.0-97.0); Mean Platelet Volume 10.3 fL (9.5-12.2); Monocytes # (A) 0.29 X 10*3/uL (0.20-1.00); Monocytes % (A) 7.8 %; Neutrophils # (A) 1.69 X 10*3/uL (1.80-7.70); Neutrophils % (A) 45.5 %; Platelet Count 310 X 10*3/uL (140-440); RDW 11.8 % (11.5-14.5); WBC 3.71 X 10*3/uL (4.50-10.00)
== END | disposition home or self-care (01) ==
LOC: LABWHC1 07:13
PROVIDERS: ATTEND Internal Medicine
DX: Z00.01 Encounter for general adult medical examination with abnormal findings (principal); Z13.220 Encounter for screening for lipoid disorders; Z13.228 Encounter for screening for other metabolic disorders
CPT/HCPCS: 36415; 80053; 80061; 85025

== ENCOUNTER → 2022-01-06 | Outpatient (CLI) | payer BC ==
--- NOTE | 2022-01-12 19:49 | MM ---
Reason for Exam: Screening (asymptomatic). Last mammogram was performed 1 year(s) and 5 month(s) ago. Patient History: Menarche at age 10. Patient has no children. Previous chest radiation therapy. Hormonal Contraceptives for 6 years until age 39. Maternal aunt had breast cancer, age 48. Maternal aunt had ovarian cancer, age 40. Last menstrual period: 12/29/2021 Risk Values: Silvia 5 year model risk: 0.8%. NCI Lifetime model risk: 10.8%. Prior Study Comparison: 01/25/2019 Bilateral Screening Mammogram, [facility]. 08/12/2020 Bilateral Screening Mammogram, [facility]. Tissue Density: The breast tissue is heterogeneously dense. This may lower the sensitivity of mammography. Findings: Analyzed By CAD. Unchanged asymmetric density superior left MLO view and a middle depth. Chronic nodularity central anterior superior left MLO view. No significant change from prior exams. Overall Assessment: Benign, BI-RAD 2 Management: Screening Mammogram of both breasts in 1 year. 1. Patient should continue monthly self breast exams. 2. A clinical breast exam by your physician is recommended on an annual basis. 3. This exam should not preclude additional follow-up of suspicious palpable abnormalities. Electronically signed and approved by: Aubrey Beach M.D. Radiologist
== END | disposition home or self-care (01) ==
LOC: RADMAMWWP 09:04
PROVIDERS: ATTEND Internal Medicine
DX: Z12.31 Encounter for screening mammogram for malignant neoplasm of breast (principal); Z80.3 Family history of malignant neoplasm of breast
CPT/HCPCS: 77063; 77067

== ENCOUNTER → 2023-02-05 | Outpatient (CLI) | payer BC ==
[2023-02-05 16:38] LABS: BUN/Creat Ratio 25.17 Ratio (12.00-20.00); Blood Urea Nitrogen 15.1 mg/dL (9.0-27.0); Chloride 106 mmol/L (96-109); Chol/HDL Ratio 3.19 Ratio; Glucose 80 mg/dL (70-110); Potassium 4.6 mmol/L (3.5-5.5); Sodium 140 mmol/L (135-145)
[2023-02-05 16:39] LABS: ALT 16 U/L (8-44); AST 23 U/L (13-35); Albumin 4.6 d/dL (3.8-4.9); Albumin/Globulin Ratio 2.09 Ratio (1.60-3.17); Alkaline Phosphatase 60 U/L (41-126); Calcium 9.4 mg/dL (8.7-10.3); Carbon Dioxide 23.1 mmol/L (21.6-31.8); Globulin 2.2 d/dL (1.6-3.3); Total Bilirubin 0.4 mg/dL (0.3-1.2); Total Protein 6.8 d/dL (6.2-8.2)
[2023-02-05 16:52] LABS: Basophils # (A) 0.04 X 10*3/uL (0.00-0.10); Basophils % (A) 0.7 %; Eosinophils # (A) 0.15 X 10*3/uL (0.04-0.35); Eosinophils % (A) 2.8 %; HCT 42.4 % (37.2-46.3); HGB 13.5 d/dL (12.0-15.0); Lymphocytes # (A) 1.73 X 10*3/uL (0.90-5.00); Lymphocytes % (A) 32.2 %; MCH 29.7 pg (27.0-32.0); MCHC 31.8 d/dL (32.0-37.0); MCV 93.4 FL (80.0-97.0); Monocytes # (A) 0.42 X 10*3/uL (0.20-1.00); Monocytes % (A) 7.8 %; NRBC Per 100 WBC 0 X 10*3/uL (0.00-0.01); Neutrophils # (A) 3.02 X 10*3/uL (1.80-7.70); Neutrophils % (A) 56.1 %; Platelet Count 136 X 10*3/uL (140-440); RBC 4.54 X 10*6/uL (4.10-5.20); RBC Morphology Normal (Normal); RDW 13.5 % (11.5-14.5); WBC 5.38 X 10*3/uL (4.50-10.00)
== END | disposition home or self-care (01) ==
LOC: LABWHC1 08:34
PROVIDERS: ATTEND Internal Medicine
DX: Z00.01 Encounter for general adult medical examination with abnormal findings (principal); Z13.220 Encounter for screening for lipoid disorders
CPT/HCPCS: 36415; 80053; 80061; 85025

== ENCOUNTER → 2023-05-27 | Outpatient (CLI) | payer BC ==
--- NOTE | 2023-05-28 08:35 | MM ---
Reason for Exam: Screening (asymptomatic). Last mammogram was performed 1 year(s) and 5 month(s) ago. Patient History: Menarche at age 10. Patient has no children. Premenopausal. Previous chest radiation therapy. Hormonal Contraceptives for 6 years until age 39. Maternal aunt had breast cancer, age 48. Maternal aunt had ovarian cancer, age 40. Risk Values: Silvia 5 year model risk: 0.9%. NCI Lifetime model risk: 10.6%. Prior Study Comparison: 01/25/2019 Bilateral Screening Mammogram, [facility]. 08/12/2020 Bilateral Screening Mammogram, [facility]. 01/06/2022 Bilateral MG 3D screening mammo w/cad, [facility]. Tissue Density: The breast tissue is heterogeneously dense. This may lower the sensitivity of mammography. Findings: Analyzed By CAD. There is no suspicious group of microcalcifications or new suspicious mass in either breast. Overall Assessment: Negative, BI-RAD 1 Management: Screening Mammogram of both breasts in 1 year. . Patient should continue monthly self-breast exams. A clinical breast exam by your physician is recommended on an annual basis. This exam should not preclude additional follow-up of suspicious palpable abnormalities. Note on Silvia scores and lifetime risk: 1. A Silvia score greater than 3% is considered moderate risk. If this is the case, consider specialist referral to assess eligibility for a risk reducing agent. 2. If overall lifetime risk for the development of breast cancer is 20% or higher, the patient may qualify for future screening with alternating mammogram and breast MRI. Electronically signed and approved by: Alli Waters M.D. Radiologis
== END | disposition home or self-care (01) ==
LOC: RADMAMWWP 12:09
PROVIDERS: ATTEND Internal Medicine
DX: Z12.31 Encounter for screening mammogram for malignant neoplasm of breast (principal); Z80.3 Family history of malignant neoplasm of breast
CPT/HCPCS: 77063; 77067

== ENCOUNTER 2023-11-23 20:59 | Emergency (ER) | payer BC ==
[2023-11-23 21:16] VITALS: RESP 18
--- NOTE | 2023-11-23 21:52 | ED ---
General Adult HPI - General Chief complaint: Nausea/Vomiting/Diarrhea Stated complaint: Nausea Time Seen by Provider: 11/23/23 21:15 Source: patient, RN notes reviewed Mode of arrival: ambulatory - History of Present Illness Initial comments: This is a 43-year-old female presents the emergency department chief complaint of contaminated water ingestion. Patient states that she came home from work this evening and open a can for [place] sparkling water and took 3 large sips of the water when she noticed that the water tasted strange. Patient looked inside of the can and noticed there is a foreign object in the can. she then self-induced vomiting. Patient called poison control and they alerted her to report to the emergency department if she was having symptoms of nausea, vomiting, diarrhea. Patient states that she has had an episode of diarrhea and is currently feeling nauseous. - Related Data Home Medications Medication Instructions Recorded Confirmed norethindrone ac-eth estradioL 1 tab PO DAILY@1200 12/04/19 12/19/19 [Loestrin 21 1-20 Tablet] Previous Rx's Medication Instructions Recorded Rivaroxaban [Xarelto] 10 mg PO DAILY #40 tab 12/16/19 Cetirizine HCl 10 mg PO DAILY #10 tablet 12/19/19 Famotidine [Pepcid] 20 mg PO BID #30 tablet 12/19/19 predniSONE 10 mg PO DAILY #30 tab 12/19/19 Allergies Allergy/AdvReac Type Severity Reaction Status Date / Time aspirin Allergy Rash/Hives Verified 11/23/23 21:16 Review of Systems ROS Statement: Those systems with pertinent positive or pertinent negative responses have been documented in the HPI. ROS Other: All systems not noted in ROS Statement are negative. Past Medical History Past Medical History: Osteoarthritis (OA) Additional Past Medical History / Comment(s): total right hip replacement History of Any Multi-Drug Resistant Organisms: None Reported Past Surgical History: Orthopedic Surgery Additional Past Surgical History / Comment(s): left achilles tendon repair, laparoscopy for endometriosis Past Anesthesia/Blood Transfusion Reactions: No Reported Reaction Past Psychological History: No Psychological Hx Reported Smoking Status: Former smoker Past Alcohol Use History: Occasional Past Drug Use History: None Reported - Past Family History Mother Family Medical History: No Reported History Additional Family Medical History / Comment(s): hypotension, Father Family Medical History: Diabetes Mellitus, Hyperlipidemia General Exam General appearance: alert, in no apparent distress Head exam: Present: atraumatic, normocephalic, normal inspection Eye exam: Present: normal appearance, PERRL, EOMI. Absent: scleral icterus, conjunctival injection, periorbital swelling ENT exam: Present: normal exam, mucous membranes moist Neck exam: Present: normal inspection. Absent: tenderness, meningismus, lymphadenopathy Respiratory exam: Present: normal lung sounds bilaterally. Absent: respiratory distress, wheezes, rales, rhonchi, stridor Cardiovascular Exam: Present: regular rate, normal rhythm, normal heart sounds. Absent: systolic murmur, diastolic murmur, rubs, gallop, clicks GI/Abdominal exam: Present: soft, normal bowel sounds. Absent: distended, tenderness, guarding, rebound, rigid Extremities exam: Present: normal inspection, full ROM, normal capillary refill. Absent: tenderness, pedal edema, joint swelling, calf tenderness Back exam: Present: normal inspection Neurological exam: Present: alert, oriented X3, CN II-XII intact Psychiatric exam: Present: normal affect, normal mood Skin exam: Present: warm, dry, intact, normal color. Absent: rash Course Vital Signs 11/23/23 11/23/23 21:10 22:32 Temperature 98.0 F 98.1 F Pulse Rate 109 H 89 Respiratory 18 18 Rate Blood Pressure 128/77 123/79 O2 Sat by Pulse 100 100 Oximetry Medical Decision Making - Medical Decision Making Was pt. sent in by a medical professional or institution (, PA, MUSEUM TOUR GUIDE, urgent care, hospital, or shelter...) When possible be specific @ -No Did you speak to anyone other than the patient for history (EMS, parent, family, police, friend...)? What history was obtained from this source @ -No Did you review nursing and triage notes (agree or disagree)? Why? @ -I reviewed and agree with nursing and triage notes Were old charts reviewed (outside hosp., previous admission, EMS record, old EKG, old radiological studies, urgent care reports/EKG's, shelter records)? Report findings @ -No old charts were reviewed Differential Diagnosis (chest pain, altered mental status, abdominal pain women, abdominal pain men, vaginal bleeding, weakness, fever, dyspnea, syncope, headache, dizziness, GI bleed, back pain, seizure, CVA, palpatations, mental health, musculoskeletal)? @ -contaminated water ingestion, gastroenteritis, self-induced vomiting, this list is not all inclusive EKG interpreted by me (3pts min.). @ -None X-rays interpreted by me (1pt min.). @ -None done CT interpreted by me (1pt min.). @ -None done U/S interpreted by me (1pt. min.). @ -None done What testing was considered but not performed or refused? (CT, X-rays, U/S, labs)? Why? @ -None What meds were considered but not given or refused? Why? @ -None Did you discuss the management of the patient with other professionals (professionals i.e. , PA, MUSEUM TOUR GUIDE, lab, RT, psych nurse, criminal justice social worker, outsoles channel opener, teacher, placement officer, telephonic nurse case manager)? Give summary @ -I spoke with a regional sales representative at the [facility] hotline in regard to the patient's case. It was relayed that the patient called poison control earlier this evening. It is recommended the patient be symptomatically treated with supportive measures such as following a liquid diet over the next 48 hours and using antiemetics as needed for nausea. Was smoking cessation discussed for >3mins.? @ -No Was critical care preformed (if so, how long)? @ -No Were there social determinants of health that impacted care today? How? (Homelessness, low income, unemployed, alcoholism, drug addiction, transportation, low edu. Level, literacy, decrease access to med. care, shelter, rehab)? @ -No Was there de-escalation of care discussed even if they declined (Discuss DNR or withdrawal of care, Hospice)? DNR status @ -No What co-morbidities impacted this encounter? (DM, HTN, Smoking, COPD, CAD, Cancer, CVA, ARF, Chemo, Hep., AIDS, mental health diagnosis, sleep apnea, morbid obesity)? @ -None Was patient admitted / discharged? Hospital course, mention meds given and route, prescriptions, significant lab abnormalities, going to OR and other pertinent info. @ -Discharge. 43-year-old female with limited water ingestion. On examination patient's vitals are within normal limits and she is resting comfortably in examination room. There are no acute findings on examination. Patient is endorsing nausea. Spoke with poison control does recommend the patient be treated for gastroenteritis and recommended to follow a diet over the next 48 hours and slowly reintroduce foods. Patient provided a starter pack for Zofran. All questions answered at bedside and strict return parameters paul the patient with understanding. Discussed with Dr. Herring Undiagnosed new problem with uncertain prognosis? @ -No Drug Therapy requiring intensive monitoring for toxicity (Heparin, Nitro, Insulin, Cardizem)? @ -No Were any procedures done? @ -No Diagnosis/symptom? @ -contaminated water ingestion, gastroenteritis Acute, or Chronic, or Acute on Chronic? @ -Acute Uncomplicated (without systemic symptoms) or Complicated (systemic symptoms)? @ -uncomplicated Side effects of treatment? @ -No Exacerbation, Progression, or Severe Exacerbation? @ -No Poses a threat to life or bodily function? How? (Chest pain, [place], MD, pneumonia, PE, COPD, DKA, ARF, appy, cholecystitis, CVA, Diverticulitis, Homicidal, Suicidal, threat to staff... and all critical care pts) @ -No Disposition Clinical Impression: Food poisoning Disposition: HOME SELF-CARE Condition: Good Instructions (If sedation given, give patient instructions): Acute Nausea and Vomiting (ED) Additional Instructions: Return to the emergency department for any new or worsening symptoms. Take Zofran as needed for intermittent nausea. Recommend you follow a liquid diet over the next 2 days and slowly reintroduce solid foods as according. Is patient prescribed a controlled substance at d/c from ED?: No Referrals: Holly Umanzor MD [Primary Care Provider] - 1-2 days Time of Disposition: 22:21
[2023-11-23] MEDS: ONDANSETRON ODT 4 MG TAB PO STA (22:14)
[2023-11-23] MEDS: ONDANSETRON 4 MG ODT STARTER PACK 2 TAB BTL PO STA (22:29)
[2023-11-23 22:33] VITALS: BP 123/79; PULSE 89; TEMP 98.1
== END 2023-11-23 22:33 | disposition home or self-care (01) ==
LOC: EC 20:59
DX: E87.79 Other fluid overload (principal); K52.9 Noninfective gastroenteritis and colitis, unspecified; Z87.891 Personal history of nicotine dependence; Z88.6 Allergy status to analgesic agent
CPT/HCPCS: 99283 ×2; S0119